=== PATIENT | female | born 1995 | race African-American/Black ===

== ENCOUNTER 2017-05-02 16:43 | Observation (INO) | payer MEDICAID ==
[~2017-05-02] VITALS: Ht 175.3 cm; Wt 86.2 kg
[~2017-05-02 16:43] MED LIST: FERR-63 PO; NITR-87 PO; PREN-88 PO
[2017-05-02] MEDS ORDERED: ONDANSETRON HCL 4MG/2ML VIAL IV SCH (17:15)
[2017-05-02 17:27] LABS: BASOPHILS % 0.1 % (0.0-2.0); EOSINOPHILS % 0.8 % (0.0-5.0); HEMATOCRIT. 31.7 % (36.0-48.0); HEMOGLOBIN. 10.8 g/dL (12.0-16.0); LYMPHOCYTES % 19.5 % (20.0-50.0); MEAN CORPUSCULAR HEMOGLOBIN 30.9 pg (28.0-32.0); MEAN CORPUSCULAR VOLUME 90.6 fL (81.0-99.0); MEAN PLATELET VOLUME 8.1 fl (7.4-10.4); MONOCYTES % 9.2 % (2.0-8.0); NEUTROPHILS % 70.4 % (40.0-76.0); PLATELET 356 x1000/uL (130-400); RED CELL DISTRIBUTION WIDTH 13.6 % (11.6-14.6)
[2017-05-02] MEDS ORDERED: SODIUM CHLORIDE 0.9% 1,000 ML IV SCH (17:30)
[2017-05-02 17:37] LABS: CARBON DIOXIDE 22 mEq/L (21-32); CHLORIDE 108 mEq/L (98-107)
[2017-05-02] MEDS ORDERED: MVI, ADULT NO.1 10 ML in SODIUM CHLORIDE 0.9% 1,000 ML IV SCH ×2 (18:00)
== END 2017-05-03 13:10 | disposition home or self-care (01) ==
LOC: L&D 16:43
PROVIDERS: ADMIT Specialist; ATTEND Specialist
DX: O26.893 Other specified pregnancy related conditions, third trimester (principal); R10.9 Unspecified abdominal pain; Z3A.30 30 weeks gestation of pregnancy; Y08.89XA Assault by other specified means, initial encounter; Y93.89 Activity, other specified; Y92.89 Other specified places as the place of occurrence of the external cause; Y99.8 Other external cause status
CPT/HCPCS: 36415; 76815; 76818; 80051; 82565; 84520; 85025; 86850; 86900; 86901; 86920; 96361; 96374; 99281; G0378; J2405; J3490; J7030; 96360

== ENCOUNTER 2017-05-27 14:23 | Observation (INO) | payer MEDICAID ==
[2017-05-27 15:33] LABS: BASOPHILS % 0.4 % (0.0-2.0); EOSINOPHILS % 0.2 % (0.0-5.0); HEMATOCRIT. 35.1 % (36.0-48.0); HEMOGLOBIN. 11.9 g/dL (12.0-16.0); LYMPHOCYTES % 16.2 % (20.0-50.0); MEAN CORPUSCULAR HEMOGLOBIN 30.6 pg (28.0-32.0); MEAN CORPUSCULAR VOLUME 90.2 fL (81.0-99.0); MEAN PLATELET VOLUME 7.8 fl (7.4-10.4); MONOCYTES % 7.3 % (2.0-8.0); NEUTROPHILS % 75.9 % (40.0-76.0); PLATELET 318 x1000/uL (130-400); RED BLOOD CELL COUNT 3.89 mill/uL (4.2-5.4); RED CELL DISTRIBUTION WIDTH 14.1 % (11.6-14.6)
[2017-05-27 15:44] LABS: PARTIAL THROMBOPLASTIN TIME 29.7 sec (24.0-34.0); PROTHROMBIN TIME 10.3 sec
== END 2017-05-27 17:45 | disposition home or self-care (01) ==
LOC: L&D 14:23
PROVIDERS: ADMIT Obstetrics & Gynecology; ATTEND Obstetrics & Gynecology
DX: O26.893 Other specified pregnancy related conditions, third trimester (principal); R10.9 Unspecified abdominal pain; Y04.2XXA Assault by strike against or bumped into by another person, initial encounter; Y93.89 Activity, other specified; Y92.89 Other specified places as the place of occurrence of the external cause; Y99.8 Other external cause status; Z3A.32 32 weeks gestation of pregnancy
CPT/HCPCS: 36415; 76815; 76818; 80051; 85025; 85610; 85730; G0378

== ENCOUNTER 2018-05-01 17:59 | Emergency (ER) | payer MEDICAID ==
[~2018-05-01] VITALS: Ht 177.8 cm; Wt 86.0 kg
[2018-05-01 18:48] LABS: BASOPHILS % 0.6 % (0.0-2.0); EOSINOPHILS % 0.6 % (0.0-5.0); HEMATOCRIT. 38.3 % (36.0-48.0); HEMOGLOBIN. 12.9 g/dL (12.0-16.0); MEAN CORPUSCULAR HEMOGLOBIN 30.3 pg (28.0-32.0); MEAN CORPUSCULAR VOLUME 89.7 fL (81.0-99.0); MEAN PLATELET VOLUME 7.7 fl (7.4-10.4); MONOCYTES % 8.6 % (2.0-8.0); NEUTROPHILS % 66.2 % (40.0-76.0); PLATELET 477 x1000/uL (130-400); RED BLOOD CELL COUNT 4.27 mill/uL (4.2-5.4); RED CELL DISTRIBUTION WIDTH 13.6 % (11.6-14.6)
[2018-05-01 18:53] LABS: PROTHROMBIN TIME 10.7 sec (9.4-11.6)
[2018-05-01 19:03] LABS: CHLORIDE 101 mEq/L (98-107)
[2018-05-01 19:28] LABS: B-HCG QUANTITATIVE 173499 mIU/mL (<3)
[2018-05-01] MEDS ORDERED: ONDANSETRON 4MG ODT PO ONE (20:15)
[2018-05-01 20:48] LABS: CLARITY URINE CLEAR (CLEAR); COLOR URINE DARK YELLOW (YELLOW); KETONES URINE TRACE (NEGATIVE); LEUKOCYTE ESTERASE URINE 2+ (NEGATIVE); NITRITE URINE NEGATIVE (NEGATIVE); OCCULT BLOOD URINE NEGATIVE (NEGATIVE); PROTEIN URINE TRACE (NEGATIVE); SPECIFIC GRAVITY URINE 1.035 (1.005-1.030)
[2018-05-01 22:13] VITALS: BP 129/75
== END 2018-05-01 22:56 | disposition home or self-care (01) ==
LOC: ER 17:59
DX: O26.891 Other specified pregnancy related conditions, first trimester (principal); R55 Syncope and collapse; R42 Dizziness and giddiness; O30.001 Twin pregnancy, unspecified number of placenta and unspecified number of amniotic sacs, first trimester; Z3A.08 8 weeks gestation of pregnancy; O23.591 Infection of other part of genital tract in pregnancy, first trimester; N76.0 Acute vaginitis; O23.41 Unspecified infection of urinary tract in pregnancy, first trimester; O99.411 Diseases of the circulatory system complicating pregnancy, first trimester; R00.1 Bradycardia, unspecified; O99.321 Drug use complicating pregnancy, first trimester; F12.10 Cannabis abuse, uncomplicated; Z88.0 Allergy status to penicillin
CPT/HCPCS: 36415; 76801; 76802; 76817; 80053; 81003; 81025; 84702; 85025; 85610; 87077; 87086; 87186; 93005; 99285; Q0162

== ENCOUNTER 2019-05-31 21:53 | Emergency (ER) | payer SELFPAY ==
[~2019-05-31] VITALS: Ht 175.3 cm; Wt 78.0 kg
[2019-05-31] MEDS ORDERED: SODIUM CHLORIDE 0.9% 1,000 ML IV ONE (22:39)
[2019-05-31] MEDS ORDERED: MORPHINE SULFATE 4 MG/ML CPJ (NOT FOR IM USE) IV STA (22:39)
[2019-05-31 23:49] LABS: CLARITY URINE CLEAR (CLEAR); COLOR URINE YELLOW (YELLOW); KETONES URINE NEGATIVE (NEGATIVE); LEUKOCYTE ESTERASE URINE TRACE (NEGATIVE); NITRITE URINE POSITIVE (NEGATIVE); OCCULT BLOOD URINE NEGATIVE (NEGATIVE); PROTEIN URINE NEGATIVE (NEGATIVE); SPECIFIC GRAVITY URINE 1.029 (1.005-1.030)
[2019-06-01 00:19] LABS: BASOPHILS % 0.5 % (0.0-2.0); EOSINOPHILS % 0.8 % (0.0-5.0); HEMATOCRIT. 37.6 % (36.0-48.0); HEMOGLOBIN. 12.3 g/dL (12.0-16.0); LYMPHOCYTES % 30.2 % (20.0-50.0); MEAN CORPUSCULAR HEMOGLOBIN 27.2 pg (28.0-32.0); MEAN CORPUSCULAR VOLUME 82.9 fL (81.0-99.0); MEAN PLATELET VOLUME 7.1 fl (7.4-10.4); MONOCYTES % 7.1 % (2.0-8.0); NEUTROPHILS % 61.4 % (40.0-76.0); PLATELET 628 x1000/uL (130-400); RED BLOOD CELL COUNT 4.54 mill/uL (4.2-5.4); RED CELL DISTRIBUTION WIDTH 17.6 % (11.6-14.6)
[2019-06-01 00:24] LABS: CHLORIDE 105 mEq/L (98-107)
[2019-06-01 00:49] LABS: B-HCG QUANTITATIVE 48609 mIU/mL (<3)
[2019-06-01 02:30] VITALS: BP 124/77
== END 2019-06-01 03:15 | disposition home or self-care (01) ==
LOC: ER 23:39
DX: O23.41 Unspecified infection of urinary tract in pregnancy, first trimester (principal); O98.811 Other maternal infectious and parasitic diseases complicating pregnancy, first trimester; B37.3 Candidiasis of vulva and vagina; Z88.0 Allergy status to penicillin; Z79.899 Other long term (current) drug therapy; Z3A.01 Less than 8 weeks gestation of pregnancy
CPT/HCPCS: 36415; 76801; 76817; 80053; 81003; 81025; 83690; 84702; 85025; 96360; 99284; J7030

== ENCOUNTER 2019-12-26 00:32 | Observation (INO) | payer MEDICAID, OTHER ==
[~2019-12-26] VITALS: Ht 177.8 cm; Wt 95.7 kg
== END 2019-12-26 03:30 | disposition home or self-care (01) ==
LOC: 8 EST LDRP 00:32
PROVIDERS: ADMIT Obstetrics & Gynecology; ATTEND Obstetrics & Gynecology
DX: O42.913 Preterm premature rupture of membranes, unspecified as to length of time between rupture and onset of labor, third trimester (principal); Z3A.36 36 weeks gestation of pregnancy
CPT/HCPCS: 99281; G0378